=== PATIENT | female | born 1965 | race Caucasian/White ===

== ENCOUNTER 2017-02-12 10:04 | Emergency (ER) | payer OTHER ==
[2017-02-12 10:40] LABS: COLOR YELLOW; LEUKOCYTE ESTERASE,URINE NEGATIVE (NEGATIVE); NITRITE,URINE NEGATIVE (NEGATIVE)
[2017-02-12 10:47] LABS: % IMMATURE GRANULYOCYTES 0.3 % (0.0-1.1); ABSOLUTE IMMATURE GRANULOCYTES 0.03 10^3/uL (0.00-0.10); ADD DIFF? NO; ADD MORPH? NO; ADD SCAN? NO; ATYPICAL LYMPHOCYTE FLAG 0 (0-99); FRAGMENT RBC FLAG 0 (0-99); HEMATOCRIT 47.1 % (38.0-47.0); LEFT SHIFT FLG 0 (0-99); LIPEMIA HEMOLYSIS FLAG 90 (0-99); MEAN CELL HEMOGLOBIN 29.8 pg (27.9-34.1); MEAN CELL VOLUME 87.7 fL (81.5-99.8); MEAN PLATELET VOLUME 11.3 fL (8.7-11.7); PLATELET CLUMPS FLAG 10 (0-99); PLATELET COUNT 238 10^3/uL (150-400); RED BLOOD CELL COUNT 5.37 10^6/uL (4.18-5.33); RED CELL DISTRIBUTION WIDTH 12.2 % (11.5-15.2)
[2017-02-12 11:04] LABS: ANION GAP 17 mEq/L (8-16); CALCIUM 10.3 mg/dL (8.5-10.4); CARBON DIOXIDE 19 mEq/l (22-31); CHLORIDE 105 mEq/L (97-110); CREATININE 0.8 mg/dL (0.6-1.0); GLOMERULAR FILTRATION RATE > 60; GLUCOSE 100 mg/dL (70-100); POTASSIUM 4.4 mEq/L (3.5-5.2); SODIUM 141 mEq/L (134-144)
[2017-02-12 11:09] LABS: MUCUS 2+ /lpf (NONE-1+)
[2017-02-12] MEDS ORDERED: HYDROmorphONE/DILAUDID 1 MG/ML SYR IVP ONE ×2 (11:18→13:00)
[2017-02-12] MEDS ORDERED: IOPAMIDOL (ISOVUE-300) 100 ML BTL ONE (11:24)
[2017-02-12] MEDS ORDERED: ONDANSETRON 4 MG/2 ML VIAL ONE (11:31)
[2017-02-12] MEDS ORDERED: ONDANSETRON 4 MG/2 ML VIAL IVP ONE (11:32)
--- NOTE | 2017-02-12 11:35 | EDPHY ---
H & P Time Seen by Provider: 02/12/17 10:18 HPI/ROS: CHIEF COMPLAINT: Abdominal pain, diarrhea HISTORY OF PRESENT ILLNESS: 52-year-old female presents to the emergency department complaining of generalized abdominal pain that began 3 weeks ago and is now getting worse. She states initially she thought that it was just acid from her stomach. She had more epigastric abdominal pain. She tried taking [id number] Prevacid and Nexium however this did not help. She states the pain became worse especially over last 24-48 hours. She now has more right flank pain as well. She has had profuse diarrhea since this morning. She thinks she has had at least 30 "fluorescent yellow" colored stool since this morning. No blood in her stool. No urinary symptoms. No headache. No chest pain or difficulty breathing. No reported trauma. REVIEW OF SYSTEMS: Constitutional: No fever, no chills. Eyes: No double or blurry vision. ENT: No sore throat. Respiratory: No cough, no shortness of breath. Cardiac: No chest pain. Gastrointestinal: Abdominal pain as above. No diarrhea. No vomiting Genitourinary: No dysuria. Musculoskeletal: No neck or back pain. Skin: No rashes. Neurological: No headache. Past Medical/Surgical History: Cholecystectomy Social History: Smoking Status: Never smoked Physical Exam: General Appearance: Alert, no distress. Afebrile. Eyes: Pupils equal and round. Extraocular motions are all intact. ENT: Mouth: Mucous membranes moist. Respiratory: No wheezing, rhonchi, or rales, lungs are clear to auscultation. Cardiovascular: Regular rate and rhythm. Gastrointestinal: Abdomen is soft. Tenderness with palpation diffusely throughout her colon. There is no rebound, guarding or masses noted. Positive CVA tenderness on the right, none on the left. Neurological: Alert and oriented x 3, cranial nerves II through XII grossly intact Skin: Warm and dry, no rashes. Musculoskeletal: Nontender to palpate along the cervical, thoracic or lumbar spine. Neck is supple. Extremities: Full range of motion and no peripheral edema. Psychiatric: Patient is oriented X 3, there is no agitation. Constitutional: Initial Vital Signs Temperature (C) 36.7 C 02/12/17 10:06 Heart Rate 68 02/12/17 10:06 Respiratory Rate 18 02/12/17 10:06 Blood Pressure 103/90 H 02/12/17 10:06 O2 Sat (%) 97 02/12/17 10:06 O2 Delivery Mode Room Air Allergies/Adverse Reactions: amoxicillin Allergy (Intermediate, Verified 02/12/17 10:10) Hives STEROIDS Allergy (Intermediate, Uncoded 02/12/17 10:10) Hives opiods Allergy (Unknown, Uncoded 02/12/17 10:10) various effects to a number of opiods Home Medications: Medication Instructions Recorded Dicyclomine [Bentyl] 20 mg PO QID #5 tab 02/12/17 Medical Decision Making - Diagnostics Imaging Results: Imaging Impressions Abdomen CT 02/12/17 11:18 Impression: 1. Mildly dilated and fluid-filled loops of large and small bowel could reflect enteritis/colitis. 2. See above report for additional findings. Results called and discussed with RAVINDRA THOMPSON on 02/12/2017 at 12:30 Imaging: Discussed imaging studies w/ house calls nurse practitioner Radiologist ED Course/Re-evaluation: 52-year-old female presents to the emergency department with generalized abdominal pain and diarrhea. She has had abdominal pain for weeks which became acutely worse over last 24-48 hours. She has had profuse diarrhea since this morning. She was able to provide a stool specimen which was negative for red blood cells and white blood cells. Her GI panel was negative for any pathogens. White blood cell count was just over 10,000. Her chemistries were within normal limits with the exception of her CO2 being slightly low at 17. She received IV normal saline as well as IV Dilaudid for pain. Patient continued to have ongoing pain. She had a CT scan of her abdomen and pelvis which revealed evidence of enteritis and colitis. No evidence of obstruction or diverticulitis. The patient was given IV Toradol and oral Bentyl. She was feeling better. I did offer admission to the hospital since she did continue to have some ongoing abdominal pain, however the patient declined. She wanted to go home and rest in her own bed. She was given strict instructions return if she developed fever , bloody diarrhea or any worsening symptoms. She was also encouraged to follow up with Gastroenterology. Differential Diagnosis: Including but not limited to colitis, enteritis, infectious diarrhea, dehydration, acute appendicitis, urinary tract infection, pyelonephritis, kidney stone - Data Points Laboratory Results: Laboratory Results 02/12/17 10:30 02/12/17 10:30 02/12/17 02/12/17 02/12/17 11:30 10:42 10:30 WBC RBC Hgb Hct MCV MCH MCHC RDW Plt Count MPV Neut % (Auto) Lymph % (Auto) [place] % (Auto) Eos % (Auto) Baso % (Auto) Nucleat RBC Rel Count Absolute Neuts (auto) Absolute Lymphs (auto) Absolute Monos (auto) Absolute Eos (auto) Absolute Basos (auto) Absolute Nucleated RBC Immature Gran % Immature Gran # Sodium 141 mEq/L mEq/L (134-144) Potassium 4.4 mEq/L mEq/L (3.5-5.2) Chloride 105 mEq/L mEq/L (97-110) Carbon Dioxide 19 mEq/l L mEq/l (22-31) Anion Gap 17 mEq/L H mEq/L (8-16) BUN 16 mg/dL mg/dL (7-23) Creatinine 0.8 mg/dL mg/dL (0.6-1.0) Estimated GFR > 60 Glucose 100 mg/dL mg/dL (70-100) Calcium 10.3 mg/dL mg/dL (8.5-10.4) Urine Color Urine Appearance Urine pH Ur Specific [place] Urine Protein Urine Ketones Urine Blood Urine Nitrate Urine Bilirubin Urine Urobilinogen Ur Leukocyte Esterase Urine RBC 1-3 /hpf /hpf (0-3) Urine WBC 1-3 /hpf /hpf (0-3) Ur Epithelial Cells TRACE /lpf /lpf (NONE-1+) Urine Mucus 2+ /lpf H /lpf (NONE-1+) Urine Glucose Stool Concentration TNP Stool Occult Bld Scrn NEGATIVE (NEGATIVE) Stool Ova & Parasites LIQUID STOOL Parasite Trichrome TNP Direct Microscop Exam TNP 02/12/17 02/12/17 10:30 10:25 WBC 10.47 10^3/uL H 10^3/uL (3.80-9.50) RBC 5.37 10^6/uL H 10^6/uL (4.18-5.33) Hgb 16.0 g/dL g/dL (12.6-16.3) Hct 47.1 % H % (38.0-47.0) MCV 87.7 fL fL (81.5-99.8) MCH 29.8 pg pg (27.9-34.1) MCHC 34.0 g/dL g/dL (32.4-36.7) RDW 12.2 % % (11.5-15.2) Plt Count 238 10^3/uL 10^3/uL (150-400) MPV 11.3 fL fL (8.7-11.7) Neut % (Auto) 83.7 % H % (39.3-74.2) Lymph % (Auto) 9.0 % L % (15.0-45.0) [place] % (Auto) 5.1 % % (4.5-13.0) Eos % (Auto) 1.6 % % (0.6-7.6) Baso % (Auto) 0.3 % % (0.3-1.7) Nucleat RBC Rel Count 0.0 % % (0.0-0.2) Absolute Neuts (auto) 8.77 10^3/uL H 10^3/uL (1.70-6.50) Absolute Lymphs (auto) 0.94 10^3/uL L 10^3/uL (1.00-3.00) Absolute Monos (auto) 0.53 10^3/uL 10^3/uL (0.30-0.80) Absolute Eos (auto) 0.17 10^3/uL 10^3/uL (0.03-0.40) Absolute Basos (auto) 0.03 10^3/uL 10^3/uL (0.02-0.10) Absolute Nucleated RBC 0.00 10^3/uL 10^3/uL (0-0.01) Immature Gran % 0.3 % % (0.0-1.1) Immature Gran # 0.03 10^3/uL 10^3/uL (0.00-0.10) Sodium Potassium Chloride Carbon Dioxide Anion Gap BUN Creatinine Estimated GFR Glucose Calcium Urine Color YELLOW Urine Appearance CLEAR Urine pH 5.0 (5.0-7.5) Ur Specific [place] 1.024 (1.002-1.030) Urine Protein NEGATIVE (NEGATIVE) Urine Ketones NEGATIVE (NEGATIVE) Urine Blood NEGATIVE (NEGATIVE) Urine Nitrate NEGATIVE (NEGATIVE) Urine Bilirubin NEGATIVE (NEGATIVE) Urine Urobilinogen NEGATIVE EU EU (0.2-1.0) Ur Leukocyte Esterase NEGATIVE (NEGATIVE) Urine RBC Urine WBC Ur Epithelial Cells Urine Mucus Urine Glucose NEGATIVE (NEGATIVE) Stool Concentration Stool Occult Bld Scrn Stool Ova & Parasites Parasite Trichrome Direct Microscop Exam Microbiology Results: MICROBIOLOGY 02/12/17 12:05 Stool Fecal Leukocyte Stain - Final 02/12/17 11:36 Stool Gastrointestinal Tract Panel (PCR) - Final No Organism Detected Medications Given: Discontinued Medications Dicyclomine HCl (Bentyl) 20 mg PO EDNOW ONE Stop: 02/12/17 13:01 Last Admin: 02/12/17 13:23 Dose: 20 mg Hydromorphone HCl (Dilaudid) 0.5 mg IVP EDNOW ONE Stop: 02/12/17 11:19 Last Admin: 02/12/17 11:28 Dose: 0.5 mg Hydromorphone HCl (Dilaudid) 0.5 mg IVP EDNOW ONE Stop: 02/12/17 13:01 Last Admin: 02/12/17 13:22 Dose: 0.5 mg Ketorolac Tromethamine (Toradol) 15 mg IVP EDNOW ONE Stop: 02/12/17 13:01 Last Admin: 02/12/17 13:23 Dose: 15 mg Ondansetron HCl (Zofran) 4 mg IVP EDNOW ONE Stop: 02/12/17 11:33 Last Admin: 02/12/17 11:32 Dose: 4 mg Departure - Departure Disposition: Home, Routine, Self-Care Clinical Impression: Enteritis, Colitis Abdominal pain Qualifiers: Abdominal location: generalized Qualified Code(s): R10.84 - Generalized abdominal pain Condition: Good Instructions: Abdominal Pain (ED), Colitis (ED), Enteritis (ED) Additional Instructions: Abdominal Pain: Return to the Emergency Department immediately for increasing pain, fever, vomiting, or if not completely better in 8-12 hours. Bentyl as needed for abdominal cramping. Referrals: ARNAUD EL MD [Other] - 1-2 days without fail Prescriptions: Dicyclomine [Bentyl] 20 mg PO QID #5 tab
[2017-02-12 11:44] LABS: O/P DESCRIPTION LIQUID STOOL
[2017-02-12 11:45] LABS: OCCULT BLOOD FECES NEGATIVE (NEGATIVE)
[2017-02-12] MEDS ORDERED: KETOROLAC 30 MG/1 ML SDV IVP ONE (13:00)
[2017-02-12] MEDS ORDERED: DICYCLOMINE 10 MG CAP PO ONE (13:00)
[2017-02-12 13:26] VITALS: RESP 16
[2017-02-12 13:27] VITALS: BP 121/75; PULSE 68; TEMP 97.5; O2SAT 95
== END 2017-02-12 14:37 | disposition home or self-care (01) ==
DX: K52.9 Noninfective gastroenteritis and colitis, unspecified (principal)
CPT/HCPCS: 96374; J1170; J1885; J2405; Q9967